=== PATIENT | male | born 1940 | race Caucasian/White ===

== ENCOUNTER 2023-07-04 10:47 | Emergency (ER) | payer MEDICARE ==
[~2023-07-04] VITALS: Ht 182.9 cm; Wt 80.9 kg
[2023-07-04] MEDS ORDERED: aspirin 81mg tab.chew PO ONE (11:00)
[2023-07-04 11:22] LABS: BASOPHILS % (AUTO) 0.6 % (0-1); EOSINOPHILS # (AUTO) 0.1 X10'3 (0-0.9); EOSINOPHILS % (AUTO) 1.5 % (0-6); HEMATOCRIT 38.4 % (42.0-52.0); LYMPHOCYTES # (AUTO) 0.9 X10'3 (1.1-4.8); LYMPHOCYTES % (AUTO) 14.8 % (21-51); MEAN CORPUSCULAR HEMOGLOBIN 33.7 PG (27.0-31.0); MEAN CORPUSCULAR HGB CONC 33.7 g/dL (33.0-36.5); MEAN CORPUSCULAR VOLUME 100.1 FL (78-98); MEAN PLATELET VOLUME 8.5 FL (7.4-10.4); MONOCYTES # (AUTO) 0.6 X10'3 (0-0.9); MONOCYTES % (AUTO) 9.7 % (2-12); NEUTROPHILS # (AUTO) 4.3 X10'3 (1.8-7.7); NEUTROPHILS % (AUTO) 73.4 % (42-75); PLATELET COUNT 167 X10'3 (140-440); RED BLOOD COUNT 3.84 X10'6 (4.70-6.10); RED CELL DISTRIBUTION WIDTH 14.3 % (11.5-14.5); WHITE BLOOD COUNT 5.8 X10'3 (4.5-11.0)
[2023-07-04 11:47] LABS: ALANINE AMINOTRANSFERASE 20 U/L (12-78); ALBUMIN 3.8 G/DL (3.4-5.0); ALBUMIN/GLOBULIN RATIO 1.1 (1.1-1.5); ALKALINE PHOSPHATASE 64 IU/L (46-116); ANION GAP 11 (8-16); ASPARTATE AMINO TRANSFERASE 21 U/L (10-37); BILIRUBIN,TOTAL 1.3 MG/DL (0.1-1.0); BLOOD UREA NITROGEN 28 MG/DL (7-18); BUN/CREATININE RATIO 18.5 (10.0-20.0); CALCIUM 9.4 MG/DL (8.5-10.1); CHLORIDE 104 MMOL/L (99-107); CREATININE 1.51 MG/DL (0.60-1.10); GLUCOSE 106 MG/DL (70-104); POTASSIUM 4.7 MMOL/L (3.5-5.1); PRO BRAIN NATRIURETIC PEPTIDE 1852 PG/ML (0-450); SODIUM 139 MMOL/L (135-145); TOTAL CARBON DIOXIDE 24.2 MMOL/L (24-32); TOTAL PROTEIN 7.2 G/DL (6.4-8.2); eGFR 44 ML/MIN
--- NOTE | 2023-07-04 13:13 | NUR ---
[employer] GENERAL ASSESSMENT REVIEWED BY JESSE RN; APPROVED
--- NOTE | 2023-07-04 13:52 | NUR ---
ROZINA NATHAN ON PHONE WITH [facility] RECEIVING REPORT REGARDING PACEMARKER INTERROGATION
[2023-07-04 15:30] VITALS: BP 134/62; PULSE 58; RESP 16; TEMP 98; O2SAT 97
== END 2023-07-04 15:33 | disposition home or self-care (01) ==
LOC: ER 10:48
DX: R00.1 Bradycardia, unspecified (principal); G89.29 Other chronic pain; M54.9 Dorsalgia, unspecified; Z88.8 Allergy status to other drugs, medicaments and biological substances; Z79.899 Other long term (current) drug therapy
CPT/HCPCS: 36415; 71045; 80053; 83735; 83880; 84484; 85025; 93005; 99285

== ENCOUNTER 2025-02-12 06:23 | Outpatient (CLI) | payer MEDICARE ==
[2025-02-12] MEDS ORDERED: LIDOcaine 1%/PF 5ML 10 MG/ML VIAL ONE (06:27)
[2025-02-12] MEDS ORDERED: LIDOcaine 1% 30ml preserv. free vial ONE (06:27)
[2025-02-12] MEDS ORDERED: iohexol 300 MG/1 ML 50ml polymer ONE (06:27)
--- NOTE | 2025-02-12 07:46 | RADIOLOGY REPORT ---
EXAM: CT CT UPPER EXTREM(SHOULDER/ARM) INDICATION: PAIN IN LEFT SHOULDER EXAM DATE: 02/12/2025 06:56 AM COMPARISON: None TECHNIQUE: Multiple axial CT images of the left shoulder were obtained using bone algorithm. Axial an d coronal reformatting was done. Bone and soft tissue windows were reviewed. Radiation Dose Information: CT Dose: CTDI volume is 15 mGy. Dose-length product is 374 mGy*cm Findings/Impression: Narrowing of the glenohumeral joint with subchondral sclerosis and osteophyte formation representing degenerative changes.. 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 No widening of the acromioclavicular earl nt. There is no evidence of an acute fracture, dislocation, blastic, or lytic lesions. 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 No obvious joint effusion. Faint calcification seen in the middle glenohumeral ligament most likely r epresenting calcific capsulitis.
== END 2025-02-12 23:59 | disposition home or self-care (01) ==
LOC: RAD 06:23
PROVIDERS: ATTEND Physician Assistant Surgical
DX: S42.002K Fracture of unspecified part of left clavicle, subsequent encounter for fracture with nonunion (principal); M25.512 Pain in left shoulder; M19.012 Primary osteoarthritis, left shoulder; X58.XXXD Exposure to other specified factors, subsequent encounter
CPT/HCPCS: 73200; J2003; J3490; Q9967